=== PATIENT | male | born 1995 | race African-American/Black ===

== ENCOUNTER 2018-02-14 11:49 | Emergency (ER) | payer MEDICAID ==
[~2018-02-14] VITALS: Ht 177.8 cm; Wt 103.9 kg
[~2018-02-14 11:49] MED LIST: ACETAMINOPHEN-1 EAC1 ORAL; AUGMENTIN 875-1 EAC1 ORAL; CIPROFLOXACIN500 M2 ORAL; DEPAKOTE250 MG PO
[2018-02-14] MEDS ORDERED: LORazepam Inj 2mg/ml 1ml IV ONE (12:15)
[2018-02-14] MEDS ORDERED: Bacitracin Oint UD TOPIC ONE (12:15)
--- NOTE | 2018-02-14 13:06 | Diagnostic Imaging Report ---
Indications: Seizure at work, headache, neck pain, head trauma Technique: Spiral acquisitions obtained through the brain. Angled axial and coronal 5 x 5 mm slices were reconstructed. Total dose length product 1362.01 mGycm. CTDI vol(s) 70.38 mGy. Dose reduction achieved using automated exposure control Comparison: 01/28/2016 Findings: There is a left supraorbital scalp soft tissue contusion, not evident previously. No acute intracranial hemorrhage or edema, mass effect nor midline shift. Normal villarreal-white differentiation. Normal size ventricles and extra-axial CSF spaces. Intact calvarium. Visualized orbits and sinuses are unremarkable. No significant interim change other than the scalp contusion Impression: Evidence of left supraorbital scalp soft tissue injury Negative for acute intracranial bleed or mass effect Consider MRI with contrast for further evaluation of stated clinical history of seizure The CT scanner at [facility] is accredited by the [employer] and the scans are performed using protocols designed to limit radiation exposure to as low as reasonably achievable to attain images of sufficient resolution adequate for diagnostic evaluation.
[2018-02-14 13:14] LABS: BASOPHILS % (AUTO) 0.9 % (0.0-2.0); HEMOGLOBIN 15.4 G/DL (14.2-18.0); LYMPHOCYTES % (AUTO) 16.2 % (20.0-45.0); MEAN CORPUSCULAR VOLUME 87 FL (80-99); MONOCYTES % (AUTO) 9.3 % (1.0-10.0); NEUTROPHILS % (AUTO) 73.6 % (45.0-75.0); PLATELET COUNT 153 K/UL (150-450); RED BLOOD COUNT 5.19 M/UL (4.70-6.10); RED CELL DISTRIBUTION WIDTH 11.5 % (11.6-14.8); WHITE BLOOD COUNT 11.5 K/UL (4.8-10.8)
[2018-02-14 13:20] VITALS: BP 130/80
[2018-02-14 13:27] LABS: ANION GAP 8 mmol/L (5-15); BLOOD UREA NITROGEN 15 mg/dL (7-18); CALCIUM 9.4 MG/DL (8.5-10.1); CARBON DIOXIDE 28 MMOL/L (21-32); CHLORIDE 102 MMOL/L (98-107); CREATININE 1.1 MG/DL (0.55-1.30); POTASSIUM 4.2 MMOL/L (3.5-5.1); SODIUM 138 MMOL/L (136-145)
[2018-02-14 13:40] LABS: ALANINE AMINOTRANSFERASE 30 U/L (12-78); ALBUMIN/GLOBULIN RATIO 1.1 (1.0-2.7); ALKALINE PHOSPHATASE 50 U/L (46-116); ASPARTATE AMINO TRANSFERASE 40 U/L (15-37); BILIRUBIN,TOTAL 0.5 MG/DL (0.2-1.0); CREATINE KINASE 1520 U/L (26-308)
--- NOTE | 2018-02-14 15:13 | Emergency Room Report ---
History of Present Illness General Chief Complaint: Seizure Source: Patient, Family Member Present Illness HPI Patient has a history of seizures and presents brought by his mother. He had a witnessed tonic-clonic seizure today. He hit his forehead in front of his face when he had the seizure. He is complaining about some mild neck pain. To me he reports pain of 8/10 (to triage 10/10) aching, neck and front of face. The patient states he has at least 3 seizures a week and they're talking about possibly needing to have surgery. He is on Lamictal and Depakote. He claims to be taking them. Did not bite tongue and was not incontinent. No fevers, chills, chest pain, palpitations, cough, NVD, dysuria, other joint pain. Tetanus UTD. Allergies: Coded Allergies: No Known Allergies (Unverified , 01/28/16) Patient History Past Medical History: see triage record Social History: Denies: smoking, alcohol use, drug use Social History Narrative with mother Reviewed Nursing Documentation: PMH: Agreed; PSxH: Agreed Nursing Documentation-PMH Past Medical History: No History, Except For Hx Seizures: Yes Review of Systems All Other Systems: negative except mentioned in HPI Physical Exam Vital Signs Date Time Temp Pulse Resp B/P (MAP) Pulse Ox O2 Delivery O2 Flow Rate FiO2 02/14/18 11:53 98.2 90 18 136/80 96 Room Air 98.2 Sp02 EP Interpretation: reviewed, normal General Appearance: well appearing, no apparent distress, GCS 15 Head: normocephalic, other - abrasion forehead and upper lip Eyes: bilateral eye normal inspection, bilateral eye PERRL, bilateral eye EOMI ENT: moist mucus membranes - no lingual macerations, other - upper lip with contusion - no sig lac inner lip Neck: supple, no bony tend Respiratory: chest non-tender, lungs clear, normal breath sounds Cardiovascular #1: regular rate, rhythm Cardiovascular #2: 2+ radial (R) Gastrointestinal: normal inspection, normal bowel sounds, non tender, no mass, non-distended, scaphoid Musculoskeletal: back normal, gait/station normal, normal range of motion Neurologic: alert, oriented x3, 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 Differential includes breakthrough seizure, subtherapeutic medication levels, electrolyte abnormality amongst others. The fact he had significant head trauma indicates the need for a CT of the head. There is no bony tenderness in the neck. He be treated with pain medication and Ativan. EKG and labs will be obtained including valproic acid level. He will also receive IV hydration. CT reveals hematoma but no intracranial pathology. EKG no injury slight peaked T waves. Labs significant for subtherapeutic valproic acid level, normal CBC and CMP. CK is slightly elevated. No further seizure activity is noted. The dosage of his medications was ascertained and as he states he is compliant increase in the Depakote was initiated. This was discussed with his mother present. Patient stable for outpatient observation and treatment. Laboratory Tests Test 02/14/18 12:30 White Blood Count 11.5 K/UL (4.8-10.8) H Red Blood Count 5.19 M/UL (4.70-6.10) Hemoglobin 15.4 G/DL (14.2-18.0) Hematocrit 45.0 % (42.0-52.0) Mean Corpuscular Volume 87 FL (80-99) Mean Corpuscular Hemoglobin 29.6 PG (27.0-31.0) Mean Corpuscular Hemoglobin Concent 34.1 G/DL (32.0-36.0) Red Cell Distribution Width 11.5 % (11.6-14.8) L Platelet Count 153 K/UL (150-450) Mean Platelet Volume 12.1 FL (6.5-10.1) H Neutrophils (%) (Auto) 73.6 % (45.0-75.0) Lymphocytes (%) (Auto) 16.2 % (20.0-45.0) L Monocytes (%) (Auto) 9.3 % (1.0-10.0) Eosinophils (%) (Auto) 0.0 % (0.0-3.0) Basophils (%) (Auto) 0.9 % (0.0-2.0) Sodium Level 138 MMOL/L (136-145) Potassium Level 4.2 MMOL/L (3.5-5.1) Chloride Level 102 MMOL/L (98-107) Carbon Dioxide Level 28 MMOL/L (21-32) Anion Gap 8 mmol/L (5-15) Blood Urea Nitrogen 15 mg/dL (7-18) Creatinine 1.1 MG/DL (0.55-1.30) Estimate Glomerular Filtration Rate > 60 mL/min (>60) Glucose Level 93 MG/DL (74-106) Calcium Level 9.4 MG/DL (8.5-10.1) Total Bilirubin 0.5 MG/DL (0.2-1.0) Aspartate Amino Transferase (AST) 40 U/L (15-37) H Alanine Aminotransferase (ALT) 30 U/L (12-78) Alkaline Phosphatase 50 U/L (46-116) Total Creatine Kinase 1520 U/L (26-308) H Total Protein 7.7 G/DL (6.4-8.2) Albumin 4.0 G/DL (3.4-5.0) Globulin 3.7 g/dL Albumin/Globulin Ratio 1.1 (1.0-2.7) Acetaminophen Level < 2 MCG/ML (10-30) L Valproic Acid Level 43 MCG/ML (50-100) L Serum Alcohol < 3 mg/dL EKG Diagnostic Results Rate: normal Rhythm: NSR ST Segments: no acute changes Rhythm Strip Diag. Results EP Interpretation: yes Rhythm: NSR, no PVC's, no ectopy CT/MRI/US Diagnostic Results CT/MRI/US Diagnostic Results : Imaging Test Ordered: head Impression hematoma Last Vital Signs Date Time Temp Pulse Resp B/P (MAP) Pulse Ox O2 Delivery O2 Flow Rate FiO2 02/14/18 16:05 97 18 130/80 99 02/14/18 16:05 98.0 Room Air 98.0 Status: improved Disposition: HOME, SELF-CARE Condition: Improved Scripts Bacitracin (Bacitracin) 28.4 Gm Oint...g. 1 APPLIC TOPIC BID, #10 GM Prov: Rick Brooks M.D. 02/14/18 Ibuprofen* (MOTRIN*) 600 Mg Tablet 600 MG ORAL Q6H PRN for For Pain, #20 TAB Prov: Rick Brooks M.D. 02/14/18 Referrals: NON PHYSICIAN (PCP) Rick Brooks M.D. Feb 14, 2018 15:13
[2018-02-14 15:21] LABS: APPEARANCE,URINE CLEAR; BILIRUBIN, URINE NEGATIVE (NEGATIVE); COLOR,URINE PALE YELLOW; GLUCOSE, URINE (UA) NEGATIVE (NEGATIVE); KETONES,URINE NEGATIVE (NEGATIVE); LEUKOCYTE ESTERASE ,URINE NEGATIVE (NEGATIVE); NITRITE,URINE NEGATIVE (NEGATIVE); PH,URINE 7 (4.5-8.0); PROTEIN,URINE NEGATIVE (NEGATIVE); UROBILINOGEN,URINE NORMAL MG/DL (0.0-1.0)
[2018-02-14] MEDS ORDERED: IBUPROFEN600 MG ORAL (15:43)
[2018-02-14] MEDS ORDERED: BACITRACIN15 GM TOPIC (15:43)
[2018-02-14 16:05] VITALS: BP 130/80
== END 2018-02-14 16:05 | disposition home or self-care (01) ==
LOC: EMR 12:50
DX: S00.83XA Contusion of other part of head, initial encounter (principal); S16.1XXA Strain of muscle, fascia and tendon at neck level, initial encounter; M54.2 Cervicalgia; G40.409 Other generalized epilepsy and epileptic syndromes, not intractable, without status epilepticus; Z79.899 Other long term (current) drug therapy
CPT/HCPCS: 36415; 70450; 80053; 80164; 80307; 80329; 81003; 82550; 85025; 93005; 96360; 99284